=== PATIENT | female | born 1995 | race Caucasian/White ===

== ENCOUNTER 2018-12-18 22:11 | Emergency (ER) | payer OTHER ==
[2018-12-18 22:37] VITALS: RESP 18; TEMP 98.2
[2018-12-18] MEDS ORDERED: KETOROLAC 60 MG/2 ML VIAL IM STA (23:18)
--- NOTE | 2018-12-19 00:21 | CT ---
EXAM: CT Lumbar Spine Without Intravenous Contrast CLINICAL HISTORY: ITS.REASON CT Reason: Pain TECHNIQUE: Axial computed tomography images of the lumbar spine without intravenous contrast. This CT exam was performed using one or more of the following dose reduction techniques: automated exposure control, adjustment of the mA and/or kV according to patient size, and/or use of iterative reconstruction technique. COMPARISON: No relevant prior studies available. FINDINGS: Vertebrae: No acute fracture. Discs/spinal canal/neural foramina: No suspicious findings. No spinal canal stenosis. Soft tissues: Unremarkable. IMPRESSION: No acute findings.
--- NOTE | 2018-12-19 00:30 | XR ---
EXAM: XR Right Femur, 2 Views CLINICAL HISTORY: ITS.REASON XR Reason: Pain TECHNIQUE: Frontal and lateral views of the right femur. COMPARISON: No relevant prior studies available. FINDINGS: Bones/joints: Unremarkable. No acute fracture. No dislocation. Soft tissues: Unremarkable. IMPRESSION: Normal right femur x-rays.
--- NOTE | 2018-12-19 00:30 | XR ---
EXAM: XR Right Knee, 3 views CLINICAL HISTORY: ITS.REASON XR Reason: Pain TECHNIQUE: Three views of the right knee. COMPARISON: No relevant prior studies available. FINDINGS: Bones/joints: Unremarkable. No acute fracture. No dislocation. Soft tissues: Unremarkable. IMPRESSION: No acute findings.
--- NOTE | 2018-12-19 00:31 | XR ---
EXAM: XR Pelvis, 1 or 2 Views CLINICAL HISTORY: ITS.REASON XR Reason: Pain TECHNIQUE: Frontal view of the pelvis. COMPARISON: No relevant prior studies available. FINDINGS: Bones/joints: Unremarkable. No acute fracture. No dislocation. Soft tissues: No acute findings. IMPRESSION: No acute findings.
--- NOTE | 2018-12-19 00:31 | XR ---
EXAM: XR Right Tibia and Fibula, 2 Views CLINICAL HISTORY: ITS.REASON XR Reason: Pain TECHNIQUE: Frontal and lateral views of the right tibia and fibula. COMPARISON: No relevant prior studies available. FINDINGS: Bones/joints: Unremarkable. No acute fracture. No dislocation. Soft tissues: Unremarkable. No radiopaque foreign body. IMPRESSION: Normal right tibia and fibula x-rays.
--- NOTE | 2018-12-19 00:38 | XR ---
EXAM: XR Right Ankle Complete, 3 or More Views CLINICAL HISTORY: ITS.REASON XR Reason: Pain TECHNIQUE: Frontal, lateral and oblique views of the right ankle. COMPARISON: No relevant prior studies available. FINDINGS: Bones/joints: Unremarkable. No acute fracture. No dislocation. Soft tissues: Unremarkable. IMPRESSION: Normal right ankle x-rays.
--- NOTE | 2018-12-19 00:39 | XR ---
EXAM: XR Left Foot Complete, 3 or More Views XR Right Foot Complete, 3 or More Views CLINICAL HISTORY: ITS.REASON XR Reason: Pain TECHNIQUE: Frontal, lateral and oblique views of the bilateral feet. COMPARISON: No relevant prior studies available. FINDINGS: Bones/joints: Unremarkable. No acute fracture. No dislocation. Soft tissues: Unremarkable. No radiopaque foreign body. IMPRESSION: Normal bilateral foot x-rays.
[2018-12-19 00:51] VITALS: BP 116/74; PULSE 86
--- NOTE | 2018-12-19 01:01 | ED ---
Fall HPI - General Chief Complaint: Fall Stated Complaint: Leg injury Time Seen by Provider: 12/18/18 22:42 Source: patient Mode of arrival: wheelchair - History of Present Illness Initial Comments: The patient is a 23-year-old female presents emergency room after she sustained a fall. The patient reports that she was walking in [facility] behind a shopping cart when she slipped on water. She states that she fell forward onto her knees. She was able to get up and ambulate on her own. She is reporting pain in her bilateral feet as well as her entire right leg. She has a history of sciatica and feels that the fall made her symptoms worse. She is complaining of low back pain. She didn't take any medications for her symptoms was brought to the emergency room for evaluation. She denies any saddle and seizure bowel or bladder incontinence. She denies any chest pain or shortness of breath. No abdominal pain. She denies any numbness or tingling in her legs. No reported lower extremity weakness. He denies she hit her head. She denies a syncopal episode. There are no alleviating, precipitating or modifying factors - Related Data Home Medications Medication Instructions Recorded Confirmed Ibuprofen [Motrin] 800 mg PO Q6HR PRN 12/18/18 12/18/18 Allergies Allergy/AdvReac Type Severity Reaction Status Date / Time [place] Allergy HIVES, Verified 12/18/18 23:02 CONGESTION sulfamethoxazole AdvReac YEAST Verified 12/18/18 23:02 [From Bactrim] INFECTION trimethoprim [From Bactrim] AdvReac YEAST Verified 12/18/18 23:02 INFECTION Review of Systems ROS Statement: Those systems with pertinent positive or pertinent negative responses have been documented in the HPI. ROS Other: All systems not noted in ROS Statement are negative. Past Medical History Past Medical History: No Reported History History of Any Multi-Drug Resistant Organisms: None Reported Past Surgical History: Cholecystectomy Past Psychological History: Anxiety, Bipolar, Depression, PTSD Smoking Status: Current every day smoker Past Alcohol Use History: None Reported Past Drug Use History: Marijuana General Exam Limitations: no limitations General appearance: alert, in no apparent distress Head exam: Present: atraumatic, normocephalic, normal inspection Eye exam: Present: normal appearance, PERRL, EOMI. Absent: scleral icterus, conjunctival injection, periorbital swelling ENT exam: Present: normal exam, mucous membranes moist Neck exam: Present: normal inspection. Absent: tenderness, meningismus, lymphadenopathy Respiratory exam: Present: normal lung sounds bilaterally. Absent: respiratory distress, wheezes, rales, rhonchi, stridor Cardiovascular Exam: Present: regular rate, normal rhythm, normal heart sounds. Absent: systolic murmur, diastolic murmur, rubs, gallop, clicks GI/Abdominal exam: Present: soft, normal bowel sounds. Absent: distended, tenderness, guarding, rebound, rigid Extremities exam: Present: normal inspection, full ROM, tenderness (tenderness to palpation of the patients right thigh, knee, tib/fib, ankle and foot. She does have 5/5 muscle strength in her b/l le. 2+ DP and PT pulses. Intact 2 pt discrimination and soft touch), normal capillary refill, other. Absent: pedal edema, joint swelling, calf tenderness Back exam: Present: normal inspection Neurological exam: Present: alert, oriented X3, CN II-XII intact Psychiatric exam: Present: normal affect, normal mood Skin exam: Present: warm, dry, intact, normal color. Absent: rash Course Vital Signs 12/18/18 12/19/18 22:32 00:50 Temperature 98.2 F 98.2 F Pulse Rate 99 86 Respiratory 18 18 Rate Blood Pressure 138/92 116/74 O2 Sat by Pulse 98 98 Oximetry Medical Decision Making - Medical Decision Making On arrival the patient is placed into room 24. A thorough history and physical exam was performed. I did offer the patient something for pain control. She is requesting Toradol. To provide her with 30 mg IM. I did recommend CT of the patient's low back. I also recommended x-ray imaging the patient's right lower extremity as well as her bilateral feet. Imaging is performed and demonstrates no acute fractures. Discussed these results with the patient. She does feel improved at this time. I did discuss her diagnosis, differential and treatment options. The patient will be discharged home at this time. She is to take Motrin and Tylenol at home as needed for pain control. She is to follow-up with her primary care physician in 2-4 days. I did inform her if she has persistent pain she may need repeat films to evaluate for hairline fractures. The patient understood this. If she has any new or worsening symptoms she should return to the emergency room. Patient was in agreement treatment plan and was discharged home stable condition - Differential Diagnosis fall from standing, acute lumbar back pain, acute right leg pain Disposition Clinical Impression: Fall, Acute lumbar back pain, Acute pain of right lower extremity Disposition: HOME SELF-CARE Condition: Stable Instructions (If sedation given, give patient instructions): Low Back Strain (ED), Leg Pain (ED) Additional Instructions: Please follow-up with your primary care physician in one to 2 days. Return to the emergency department for any new or worsening symptoms Is patient prescribed a controlled substance at d/c from ED?: No Referrals: Isidro Frankel MD [Primary Care Provider] - 1-2 days Time of Disposition: 01:01
== END 2018-12-19 01:13 | disposition home or self-care (01) ==
LOC: EC 22:11
DX: M79.672 Pain in left foot (principal); M79.671 Pain in right foot; M54.5 Low back pain; F17.200 Nicotine dependence, unspecified, uncomplicated; Z91.018 Allergy to other foods; Z88.2 Allergy status to sulfonamides; W01.0XXA Fall on same level from slipping, tripping and stumbling without subsequent striking against object, initial encounter; Y93.01 Activity, walking, marching and hiking; Y92.512 Supermarket, store or market as the place of occurrence of the external cause
CPT/HCPCS: 73630; 72170; 73552; 73590; 73562; 73610; 72131; 99284; 96372; J1885

== ENCOUNTER 2022-10-15 11:33 | Emergency (ER) | payer OTHER ==
[2022-10-15 11:50] VITALS: RESP 18
[2022-10-15] MEDS ORDERED: KETOROLAC 15 MG/ML 1 ML VIAL IM STA (13:16)
[2022-10-15] MEDS ORDERED: PENICILLIN G BENZATHINE 1,200,000 UNIT/2 ML SYRINGE IM STA (14:13)
--- NOTE | 2022-10-15 14:28 | ED ---
General Adult HPI - General Chief complaint: Dental/Oral Stated complaint: moth ache- infection Time Seen by Provider: 10/15/22 12:41 Source: patient, RN notes reviewed Mode of arrival: ambulatory Limitations: no limitations - History of Present Illness Initial comments: 27-year-old female presents to the emergency department with chief complaint of dental infection. Patient states that it is has been going on for about 4-5 days. States that she saw her primary care earlier this week who prescribed her Augmentin. He states that today is the fourth day on Augmentin. She states that the pain is getting worse and now feels like she has an abscess that was draining blood earlier today. Patient has an extensive history of dental infection for which she has been treated frequently. Denies fever. Patient has a history of anxiety but states she does not take any daily medications. - Related Data Home Medications Medication Instructions Recorded Confirmed Ibuprofen [Motrin] 800 mg PO Q6HR PRN 12/18/18 12/18/18 Allergies Allergy/AdvReac Type Severity Reaction Status Date / Time [place] Allergy HIVES, Verified 10/15/22 11:50 CONGESTION sulfamethoxazole AdvReac YEAST Verified 10/15/22 11:50 [From Bactrim] INFECTION trimethoprim [From Bactrim] AdvReac YEAST Verified 10/15/22 11:50 INFECTION Review of Systems ROS Statement: Those systems with pertinent positive or pertinent negative responses have been documented in the HPI. ROS Other: All systems not noted in ROS Statement are negative. Past Medical History Past Medical History: No Reported History History of Any Multi-Drug Resistant Organisms: None Reported Past Surgical History: Cholecystectomy Past Psychological History: Anxiety, Bipolar, Depression, PTSD Smoking Status: Current every day smoker, Vaper Past Alcohol Use History: Rare Past Drug Use History: Marijuana General Exam Limitations: no limitations General appearance: alert, in no apparent distress Head exam: Present: atraumatic, normocephalic, normal inspection Eye exam: Present: normal appearance ENT exam: Present: other (Poor dentition, mild swelling to the left cheek, possible dental abscess to the left upper dentition) Neck exam: Present: normal inspection. Absent: tenderness, meningismus, lymphadenopathy Respiratory exam: Present: normal lung sounds bilaterally. Absent: respiratory distress, wheezes, rales, rhonchi, stridor Cardiovascular Exam: Present: regular rate, normal rhythm, normal heart sounds. Absent: systolic murmur, diastolic murmur, rubs, gallop, clicks Extremities exam: Present: normal inspection, full ROM, normal capillary refill. Absent: tenderness, pedal edema, joint swelling, calf tenderness Back exam: Present: normal inspection Neurological exam: Present: alert, oriented X3 Psychiatric exam: Present: normal affect, normal mood Skin exam: Present: warm, dry, intact, normal color. Absent: rash Course Vital Signs 10/15/22 10/15/22 11:47 14:39 Temperature 97.5 F L 97.8 F Pulse Rate 102 H 92 Respiratory 18 18 Rate Blood Pressure 166/102 148/72 O2 Sat by Pulse 100 100 Oximetry Medical Decision Making - Medical Decision Making Was pt. sent in by a medical professional or institution (, [facility], [facility], urgent care, hospital, or detention...) When possible be specific @ -No Did you speak to anyone other than the patient for history (EMS, parent, family, police, friend...)? What history was obtained from this source @ -No Did you review nursing and triage notes (agree or disagree)? Why? @ -I reviewed and agree with nursing and triage notes Were old charts reviewed (outside hosp., previous admission, EMS record, old EKG, old radiological studies, urgent care reports/EKG's, detention records)? Report findings @ -No old charts were reviewed Differential Diagnosis (chest pain, altered mental status, abdominal pain women, abdominal pain men, vaginal bleeding, weakness, fever, dyspnea, syncope, headache, dizziness, GI bleed, back pain, seizure, CVA, palpatations, mental health, musculoskeletal)? @ -Dental infection, dental abscess, saladenitis, this list is not all inclusive EKG interpreted by me (3pts min.). @ -None X-rays interpreted by me (1pt min.). @ -None done CT interpreted by me (1pt min.). @ -None done U/S interpreted by me (1pt. min.). @ -None done What testing was considered but not performed or refused? (CT, X-rays, U/S, labs)? Why? @ -None What meds were considered but not given or refused? Why? @ -None Did you discuss the management of the patient with other professionals (professionals i.e. , PA, C[employer] CH[employer]PER, lab, RT, psych nurse, director social, architectural drafting instructor, teacher, community reinvestment act officer, case management specialist)? Give summary @ -No Was smoking cessation discussed for >3mins.? @ -No Was critical care preformed (if so, how long)? @ -No Were there social determinants of health that impacted care today? How? (Homelessness, low income, unemployed, alcoholism, drug addiction, transportation, low edu. Level, literacy, decrease access to med. care, retirement, rehab)? @ -No Was there de-escalation of care discussed even if they declined (Discuss DNR or withdrawal of care, Hospice)? DNR status @ -No What co-morbidities impacted this encounter? (DM, HTN, Smoking, COPD, CAD, Cancer, CVA, ARF, Chemo, Hep., AIDS, mental health diagnosis, sleep apnea, morbid obesity)? @ -None Was patient admitted / discharged? Hospital course, mention meds given and route, prescriptions, significant lab abnormalities, going to OR and other pertinent info. @ -Discharged. Patient presented to the emergency department with chief complaint of dental infection. Patient states that she has been having pain for about 4-5 days and has been taking Augmentin today is her fourth day of the antibiotic. She states that the pain is worsening and she feels like she had some drainage from her left upper gums earlier today. Patient was given a Toradol shot, drainage of the abscess was attempted with normal discharge. Patient was given a penicillin shot and advised to follow-up with the dentist. Patient discharged in stable condition. Case discussed with my attending, Dr. Alexander Undiagnosed new problem with uncertain prognosis? @ -No Drug Therapy requiring intensive monitoring for toxicity (Heparin, Nitro, Insulin, Cardizem)? @ -No Were any procedures done? @ -No Diagnosis/symptom? @ -Dental infection Acute, or Chronic, or Acute on Chronic? @ -acute Uncomplicated (without systemic symptoms) or Complicated (systemic symptoms)? @ -uncomplicated Side effects of treatment? @ -No Exacerbation, Progression, or Severe Exacerbation? @ -No Poses a threat to life or bodily function? How? (Chest pain, [place], [place], pneumonia, PE, COPD, DKA, ARF, appy, cholecystitis, CVA, Diverticulitis, Homicidal, Suicidal, threat to staff... and all critical care pts) @ -No Disposition Clinical Impression: Dental abscess Disposition: HOME SELF-CARE Condition: Stable Instructions (If sedation given, give patient instructions): Dental Abscess (ED) Additional Instructions: Please try to get in to see a dentist. Please return to the emergency department for new or worsening symptoms. Is patient prescribed a controlled substance at d/c from ED?: No Referrals: Isidro Frankel MD [Primary Care Provider] - 1-2 days Time of Disposition: 14:28
[2022-10-15 14:41] VITALS: BP 148/72; PULSE 92; TEMP 97.8
== END 2022-10-15 14:41 | disposition home or self-care (01) ==
LOC: EC 11:33
DX: K04.7 Periapical abscess without sinus (principal); F31.9 Bipolar disorder, unspecified; F41.9 Anxiety disorder, unspecified; F17.290 Nicotine dependence, other tobacco product, uncomplicated; F12.90 Cannabis use, unspecified, uncomplicated; Z88.1 Allergy status to other antibiotic agents; Z88.2 Allergy status to sulfonamides; Z79.899 Other long term (current) drug therapy
CPT/HCPCS: 99282; 96372 ×2; J0561; J1885

== ENCOUNTER 2022-11-30 10:57 | Emergency (ER) | payer OTHER ==
--- NOTE | 2022-11-30 13:10 | ED ---
General Adult HPI - General Chief complaint: Skin/Abscess/Foreign Body Stated complaint: dental pain Time Seen by Provider: 11/30/22 11:44 Source: patient, RN notes reviewed Mode of arrival: ambulatory Limitations: no limitations - History of Present Illness Initial comments: 27-year-old female with no significant past medical history presents to the emergency department with a chief complaint of vaginal abscess. Patient reports that she was noticed a hard tender lump in her vaginal region 2 days ago. She is unsure of any exposure to STDs. She reports that she is currently on her left menstrual cycle. She denies any fevers, dysuria, hematuria, back pain, lower abdominal pain. - Related Data Home Medications Medication Instructions Recorded Confirmed Ibuprofen [Motrin] 800 mg PO Q6HR PRN 12/18/18 12/18/18 Allergies Allergy/AdvReac Type Severity Reaction Status Date / Time [place] Allergy HIVES, Verified 11/30/22 11:18 CONGESTION sulfamethoxazole AdvReac YEAST Verified 11/30/22 11:18 [From Bactrim] INFECTION trimethoprim [From Bactrim] AdvReac YEAST Verified 11/30/22 11:18 INFECTION Review of Systems ROS Statement: Those systems with pertinent positive or pertinent negative responses have been documented in the HPI. ROS Other: All systems not noted in ROS Statement are negative. Past Medical History Past Medical History: No Reported History History of Any Multi-Drug Resistant Organisms: None Reported Past Surgical History: Cholecystectomy, Tonsillectomy Additional Past Surgical History / Comment(s): harper left foot Past Psychological History: Anxiety, Bipolar, Depression, PTSD Smoking Status: Current every day smoker, Vaper Past Alcohol Use History: Rare Past Drug Use History: None Reported General Exam - General Exam Comments Initial Comments: General: Alert, in no acute distress Head: atraumatic normocephalic. Eyes PERRL, EOMI intact, mucous membranes moist Respiratory: Lungs clear to auscultation bilaterally Cardiovascular: Heart rate regular rate and rhythm GUxternal exam is with small, open, vesicular lesion to right labia. No fluctuance. Vaginal canal with scant blood.. Cervical os is visualized and is closed. There is no cervical motion tenderness for abnormal adnexal tenderness. Pelvic exam performed with Jennifer womack RN present. Abdominal: Soft without guarding or rebound Extremities: Normal inspection with full range of motion and normal capillary refill Neuroogic: alert and oriented 3, CN II-XII intact, able to ambulate with steady gait Skin: warm dry and intact with normal color Limitations: no limitations Course Vital Signs 11/30/22 11/30/22 11:19 13:53 Temperature 98.7 F 98.1 F Pulse Rate 88 84 Respiratory 18 14 Rate Blood Pressure 143/94 117/81 O2 Sat by Pulse 97 96 Oximetry Medical Decision Making - Medical Decision Making Was pt. sent in by a medical professional or institution ([facility] Munoz, [employer]LL[employer] CAPTAIN, urgent care, hospital, or intermediate...) When possible be specific @ -[No] Did you speak to anyone other than the patient for history (EMS, parent, family, police, friend...)? What history was obtained from this source @ -[No] Did you review nursing and triage notes (agree or disagree)? Why? @ -[I reviewed and agree with nursing and triage notes] Were old charts reviewed (outside hosp., previous admission, EMS record, old EKG, old radiological studies, urgent care reports/EKG's, intermediate records)? Report findings @ -[No old charts were reviewed] Differential Diagnosis (chest pain, altered mental status, abdominal pain women, abdominal pain men, vaginal bleeding, weakness, fever, dyspnea, syncope, headache, dizziness, GI bleed, back pain, seizure, CVA, palpatations, mental health, musculoskeletal)? @ -[not applicable] EKG interpreted by me (3pts min.). @ -[As above] X-rays interpreted by me (1pt min.). @ -[None done] CT interpreted by me (1pt min.). @ -[None done] U/S interpreted by me (1pt. min.). @ -[None done] What testing was considered but not performed or refused? (CT, X-rays, U/S, labs)? Why? @ -[None] What meds were considered but not given or refused? Why? @ -[None] Did you discuss the management of the patient with other professionals (professionals i.e. AMISH Munoz, [employer] CAPTAIN, lab, RT, psych nurse, aids social worker, manager organizational, teacher, asset protection officer, telephonic case manager)? Give summary @ -[No] Was smoking cessation discussed for >3mins.? @ -[No] Was critical care preformed (if so, how long)? @ -[No] Were there social determinants of health that impacted care today? How? (Homelessness, low income, unemployed, alcoholism, drug addiction, transportation, low edu. Level, literacy, decrease access to med. care, long-term, rehab)? @ -[No] Was there de-escalation of care discussed even if they declined (Discuss DNR or withdrawal of care, Hospice)? DNR status @ -[No] What co-morbidities impacted this encounter? (DM, HTN, Smoking, COPD, CAD, Cancer, CVA, ARF, Chemo, Hep., AIDS, mental health diagnosis, sleep apnea, morbid obesity)? @ -[None] Was patient admitted / discharged? Hospital course, mention meds given and route, prescriptions, significant lab abnormalities, going to OR and other pertinent info. @ -Discharged. This is a 27-year-old female presents the emergency department with vaginal abscess. Patient had a thorough history physical exam performed while in the ED. Physical exam reveals a small 1 cm open, erythematous lesion to right labia that is tender. Patient had vaginal swabs obtained. Gonorrhea, chlamydia, Trichomonas, HSV 1 and 2 testing pending. Patient was offered prophylactic STD treatment: This is declined at the time of evaluation. Return precautions were discussed at length with recommended close follow-up in 1-2 days. Patient discharged in stable condition. Case discussed with Dr Umana., P who agrees with plan of care Undiagnosed new problem with uncertain prognosis? @ -[No] Drug Therapy requiring intensive monitoring for toxicity (Heparin, Nitro, Insulin, Cardizem)? @ -[No] Were any procedures done? @ -[No] Diagnosis/symptom? @ -Vaginal lesion vs Herpes simplex 2 Acute, or Chronic, or Acute on Chronic? @ -Acute Uncomplicated (without systemic symptoms) or Complicated (systemic symptoms)? @ -Uncomplicated Side effects of treatment? @ -[No] Exacerbation, Progression, or Severe Exacerbation? @ -[No] Poses a threat to life or bodily function? How? (Chest pain, [place], [place], pneumonia, PE, COPD, DKA, ARF, appy, cholecystitis, CVA, Diverticulitis, Homicidal, Suicidal, threat to staff... and all critical care pts) @ -Low likelihood - Lab Data Lab Results 11/30/22 11/30/22 11/30/22 Range/Units 13:00 13:00 13:00 Urine Color Yellow Urine Appearance Cloudy H (Clear) Urine pH 7.0 (5.0-8.0) Ur Specific [place] 1.029 (1.001-1.035) Urine Protein Trace H (Negative) Urine Glucose (UA) Negative (Negative) Urine Ketones Negative (Negative) Urine Blood Large H (Negative) Urine Nitrite Negative (Negative) Urine Bilirubin Negative (Negative) Urine Urobilinogen <2.0 (<2.0) mg/dL Ur Leukocyte Esterase Small H (Negative) Urine RBC 131 H (0-5) /hpf Urine WBC 12 H (0-5) /hpf Ur Squamous Epith Cells 23 H (0-4) /hpf Urine Mucus Rare H (None) /hpf Urine HCG, Qual Not Detected (Not Detectd) Trichomonas Ag (Rapid) Negative (Negative) Disposition Clinical Impression: Vaginal lesion Disposition: HOME SELF-CARE Condition: Stable Instructions (If sedation given, give patient instructions): Genital Herpes Simplex (ED), Sexually Transmitted Diseases (ED) Additional Instructions: Please return to the nearest emergency department symptoms worsen or persist Is patient prescribed a controlled substance at d/c from ED?: No Referrals: None,Stated [Primary Care Provider] - 1-2 days Time of Disposition: 13:10
[2022-11-30 13:19] LABS: Appearance,Urine Cloudy (Clear); Bilirubin,Urine Negative (Negative); Blood,Urine Large (Negative); Color,Urine Yellow; Glucose,Urine (UA) Negative (Negative); Ketones,Urine Negative (Negative); Leukocyte Esterase,Urine Small (Negative); Mucus,Urine Rare /hpf; Nitrite,Urine Negative (Negative); Protein,Urine Trace (Negative); RBC,Urine 131 /hpf (0-5); Specific Gravity,Urine 1.029 (1.001-1.035); Squamous Epithelial Cell,Urine 23 /hpf (0-4); Urobilinogen,Urine <2.0 mg/dL (<2.0); WBC,Urine 12 /hpf (0-5)
[2022-11-30 13:55] VITALS: BP 117/81; PULSE 84; RESP 14; TEMP 98.1
== END 2022-11-30 13:45 | disposition home or self-care (01) ==
LOC: EC 10:57
DX: N89.8 Other specified noninflammatory disorders of vagina (principal); F17.290 Nicotine dependence, other tobacco product, uncomplicated; Z88.2 Allergy status to sulfonamides; Z88.8 Allergy status to other drugs, medicaments and biological substances; Z86.59 Personal history of other mental and behavioral disorders
CPT/HCPCS: 81001; 81025; 87491; 87529; 87591; 87808; 99283

== ENCOUNTER 2023-09-10 14:48 | Emergency (ER) | payer OTHER ==
--- NOTE | 2023-09-10 15:41 | ED ---
URI HPI - General Source: patient, RN notes reviewed Mode of arrival: ambulatory Limitations: no limitations <Gallo Lopez - Last Filed: 09/10/23 15:40> - General Source: patient, RN notes reviewed Mode of arrival: ambulatory Limitations: no limitations <Roxanna Goodman - Last Filed: 09/10/23 21:54> - General Chief Complaint: Upper Respiratory Infection Stated Complaint: Lesion under L breast Time Seen by Provider: 09/10/23 14:53 - History of Present Illness Initial Comments: Quick [id number] female presents emergency department with chief complaint of cough and congestion, breast abscess. She states that she does notice the abscess last 24 hours she has been congested for last 5 days with cough congestion. (Gallo Lopez) 28-year-old female presented to the ER with a chief complaint of cough and congestion. She states for the past 3 to 4 days she has been feeling unwell with a cough. She has been taking [id number] ibuprofen with minor relief. She also reports pain under her right breast. She has tried using nystatin powder. She first noticed this breast tenderness about 24 hours ago. She does have a history significant of at bedtime. She denies any known fevers, nausea, vomiting, chest pain, shortness of breath, abdominal pain, urinary complaints or peripheral edema. (Roxanna Goodman) - Related Data Previous Rx's Medication Instructions Recorded Ibuprofen [Motrin] 600 mg PO Q8HR PRN #20 tab 09/10/23 Nystatin 100,000Unit/gm Cream 1 applic TOPICAL BID #15 gram 09/10/23 [Mycostatin Cream] Nystatin 100,000Unit/gm Cream 1 applic TOPICAL BID #15 gram 09/10/23 [Mycostatin Cream] Allergies Allergy/AdvReac Type Severity Reaction Status Date / Time [place] Allergy HIVES, Verified 09/10/23 15:05 CONGESTION sulfamethoxazole AdvReac YEAST Verified 09/10/23 15:05 [From Bactrim] INFECTION trimethoprim [From Bactrim] AdvReac YEAST Verified 09/10/23 15:05 INFECTION Review of Systems ROS Other: All systems not noted in ROS Statement are negative. <Gallo Lopez - Last Filed: 09/10/23 15:40> ROS Other: All systems not noted in ROS Statement are negative. <Roxanna Goodman - Last Filed: 09/10/23 21:54> ROS Statement: Those systems with pertinent positive or pertinent negative responses have been documented in the HPI. Past Medical History Past Medical History: No Reported History History of Any Multi-Drug Resistant Organisms: None Reported Past Surgical History: Cholecystectomy, Tonsillectomy Additional Past Surgical History / Comment(s): harper left foot Past Psychological History: Anxiety, Bipolar, Depression, PTSD Smoking Status: Current every day smoker, Vaper Past Alcohol Use History: Rare Past Drug Use History: None Reported <Gallo Lopez - Last Filed: 09/10/23 15:40> General Exam Limitations: no limitations <Gallo Lopez - Last Filed: 09/10/23 15:40> General appearance: alert, in no apparent distress Head exam: Present: atraumatic, normocephalic, normal inspection ENT exam: Present: normal exam, normal oropharynx, mucous membranes moist, TM's normal bilaterally (Mildly erythematous) Neck exam: Present: normal inspection. Absent: tenderness, meningismus, lymphad enopathy Respiratory exam: Present: normal lung sounds bilaterally. Absent: respiratory distress, wheezes, rales, rhonchi, stridor Cardiovascular Exam: Present: regular rate, normal rhythm, normal heart sounds. Absent: systolic murmur, diastolic murmur, rubs, gallop, clicks Neurological exam: Present: alert, oriented X3, CN II-XII intact Skin exam: Present: warm, dry, intact, normal color, other (Under her right breast weight plaque with surrounding erythema.). Absent: rash <Roxanna Goodman - Last Filed: 09/10/23 21:54> - General Exam Comments Initial Comments: Visual Physical Exam Vital signs reviewed General: Well-appearing, nontoxic, no acute distress. Head: Normocephalic, atraumatic Eyes: PERRLA, EOMI ENT: Airway patent Chest: Nonlabored breathing Skin: No visual rash, normal skin tone Neuro: Alert and oriented 3 Musculoskeletal: No gross abnormalities (Gallo Lopez) Course Vital Signs 09/10/23 09/10/23 15:03 16:49 Temperature 98.4 F 98.4 F Pulse Rate 102 H 99 Respiratory 20 18 Rate Blood Pressure 132/95 131/90 O2 Sat by Pulse 96 99 Oximetry Medical Decision Making <Gallo Lopez - Last Filed: 09/10/23 15:40> <Roxanna Goodman - Last Filed: 09/10/23 21:54> - Medical Decision Making I completed the quick note portion of this chart signed Gallo Lopez PA-C (Gallo Lopez) Was pt. sent in by a medical professional or institution (AMISH Munoz, SHEETER HELPER, urgent care, hospital, or shelter...) When possible be specific @ -No Did you speak to anyone other than the patient for history (EMS, parent, family, police, friend...)? What history was obtained from this source @ -No Did you review nursing and triage notes (agree or disagree)? Why? @ -I reviewed and agree with nursing and triage notes Were old charts reviewed (outside hosp., previous admission, EMS record, old EKG, old radiological studies, urgent care reports/EKG's, shelter records)? Report findings @ -No old charts were reviewed Differential Diagnosis (chest pain, altered mental status, abdominal pain women, abdominal pain men, vaginal bleeding, weakness, fever, dyspnea, syncope, headache, dizziness, GI bleed, back pain, seizure, CVA, palpatations, mental health, musculoskeletal)? @ -COVID, RSV, influenza, viral sinusitis, pneumonia this list is not meant to be all-inclusive EKG interpreted by me (3pts min.). @ -None X-rays interpreted by me (1pt min.). @ -None done CT interpreted by me (1pt min.). @ -None done U/S interpreted by me (1pt. min.). @ -None done What testing was considered but not performed or refused? (CT, X-rays, U/S, labs)? Why? @ -None What meds were considered but not given or refused? Why? @ -None Did you discuss the management of the patient with other professionals (professionals i.e. AMISH Munoz, SHEETER HELPER, lab, RT, psych nurse, social service coordinator, deputy director of nursing, teacher, deck officer, supervisor case loading)? Give summary @ -No Was smoking cessation discussed for >3mins.? @ -I discussed smoking cessation for greater than 3 minutes. The risk of smoking were discussed with the patient including but not limited to risks of cancer, stroke, coronary artery disease and COPD. Also discussed with patient were multiple methods of quitting smoking. Lastly we discussed the financial cost of smoking. Was critical care preformed (if so, how long)? @ -No Were there social determinants of health that impacted care today? How? (Homelessness, low income, unemployed, alcoholism, drug addiction, transportation, low edu. Level, literacy, decrease access to med. care, snf, rehab)? @ -No Was there de-escalation of care discussed even if they declined (Discuss DNR or withdrawal of care, Hospice)? DNR status @ -No What co-morbidities impacted this encounter? (DM, HTN, Smoking, COPD, CAD, Cancer, CVA, ARF, Chemo, Hep., AIDS, mental health diagnosis, sleep apnea, morbid obesity)? @ -Obese Was patient admitted / discharged? Hospital course, mention meds given and route, prescriptions, significant lab abnormalities, going to OR and other pertinent info. @ -Discharge. 28-year-old female presented to the ER with chief complaint of cough and congestion. History and physical exam completed. Vitals stable. Patient in no signs acute distress and nontoxic-appearing. COVID-positive. RSV and influenza negative. Patient received by mouth Tylenol for symptom control in the ER. Results discussed with patient, all questions answered. Patient prescribed ibuprofen and nystatin cream for right breast cutaneous Roxanne. Advise close follow-up with PCP. Strict return parameters discussed. Patient discharged stable condition with follow-up to PCP. Patient verbally expressed understanding and agreement with care plan. Case discussed with ED attending, Dr. Alexander. Undiagnosed new problem with uncertain prognosis? @ -No Drug Therapy requiring intensive monitoring for toxicity (Heparin, Nitro, Insulin, Cardizem)? @ -No Were any procedures done? @ -No Diagnosis/symptom? @ -COVID/viral sinusitis/cutaneous Roxanne Acute, or Chronic, or Acute on Chronic? @ -Acute Uncomplicated (without systemic symptoms) or Complicated (systemic symptoms)? @ -Uncomplicated Side effects of treatment? @ -No Exacerbation, Progression, or Severe Exacerbation? @ -No Poses a threat to life or bodily function? How? (Chest pain, [place], PA, pneumonia, PE, COPD, DKA, ARF, appy, cholecystitis, CVA, Diverticulitis, Homicidal, Suicidal, threat to staff... and all critical care pts) @ -No (Roxanna Goodman) - Lab Data Lab Results 09/10/23 Range/Units 15:44 Influenza Type A (PCR) Not Detected (Not Detectd) Influenza Type B (PCR) Not Detected (Not Detectd) RSV (PCR) Not Detected (Not Detectd) SARS-CoV-2 (PCR) Detected A (Not Detectd) Disposition <Gallo Lopez - Last Filed: 09/10/23 15:40> Is patient prescribed a controlled substance at d/c from ED?: No Time of Disposition: 16:39 <Roxanna Goodman - Last Filed: 09/10/23 21:54> Clinical Impression: COVID-19, Acute viral sinusitis, Cutaneous candidiasis Disposition: HOME SELF-CARE Condition: Stable Instructions (If sedation given, give patient instructions): Fever in Adults (ED) Additional Instructions: Alternate [id number] Tylenol and Motrin for fever and symptom control. Use nystatin twice daily under right breast. Keep area clean and dry. Follow- up with PCP. Return to the ER for new or worsening concerns. Prescriptions: Ibuprofen [Motrin] 600 mg PO Q8HR PRN #20 tab PRN Reason: Pain Nystatin 100,000Unit/gm Cream [Mycostatin Cream] 1 applic TOPICAL BID #15 gram Nystatin 100,000Unit/gm Cream [Mycostatin Cream] 1 applic TOPICAL BID #15 gram Referrals: None,Stated [Primary Care Provider] - 1-2 days Forms: [facility] PC[facility]
[2023-09-10 15:42] VITALS: TEMP 98.4
[2023-09-10] MEDS ORDERED: ACETAMINOPHEN TAB 325 MG TAB PO STA (16:44)
[2023-09-10 16:59] VITALS: BP 131/90; PULSE 99; RESP 18
== END 2023-09-10 16:50 | disposition home or self-care (01) ==
LOC: EC 14:48
DX: U07.1 COVID-19 (principal); J01.90 Acute sinusitis, unspecified; B37.9 Candidiasis, unspecified; Z88.2 Allergy status to sulfonamides; Z88.1 Allergy status to other antibiotic agents; Z88.8 Allergy status to other drugs, medicaments and biological substances
CPT/HCPCS: 87636; 99283; 99406